=== PATIENT | female | born 1990 | race African-American/Black ===

== ENCOUNTER 2019-05-26 20:27 | Emergency (ER) | payer SELFPAY ==
[~2019-05-26] VITALS: Ht 165.1 cm; Wt 64.0 kg
[2019-05-26] MEDS ORDERED: DEXAMETHASONE 4MG TABLET PO ONE (22:00)
[2019-05-26] MEDS ORDERED: ALBUTEROL (0.083%) 2.5MG/3ML NEB HHN ONE (22:00)
[2019-05-26] MEDS ORDERED: ALBUTEROL (0.5%) 2.5MG/0.5ML NEB HHN ONE (23:15)
[2019-05-27 01:20] VITALS: BP 115/76
== END 2019-05-27 01:22 | disposition home or self-care (01) ==
LOC: ER 20:27
DX: J45.901 Unspecified asthma with (acute) exacerbation (principal)
CPT/HCPCS: 71045; 81025; 94640; 99284; J7611; J8540; Z7610

== ENCOUNTER 2020-11-03 09:08 | Inpatient (IN) | payer MEDICAID ==
[~2020-11-03] VITALS: Ht 165.1 cm; Wt 77.6 kg
[2020-11-03] MEDS ORDERED: PREN-182 PO (10:23)
[2020-11-03] MEDS ORDERED: FERR-71 MT (10:24)
[2020-11-03] MEDS ORDERED: BUTORPHANOL TARTRATE 2 MG/ML VIAL IV PRN ×2 (13:15→20:15)
[2020-11-03] MEDS ORDERED: METHYLERGONOVINE MALEATE 0.2 MG/ML IM PRN (13:15)
[2020-11-03] MEDS ORDERED: CARBOPROST TROMETHAMINE 250 MCG/ML AMPUL IM PRN (13:15)
[2020-11-03] MEDS ORDERED: NALOXONE HCL 0.4 MG/ML 1ML VIAL IM PRN (13:15)
[2020-11-03] MEDS: LACTATED RINGERS 1,000 ML IV SCH ×2 (14:35→15:06)
[2020-11-03 14:41] LABS: BASOPHILS % 0.5 % (0.0-2.0); EOSINOPHILS % 1.3 % (0.0-5.0); HEMATOCRIT. 30.8 % (36.0-48.0); HEMOGLOBIN. 10.3 g/dL (12.0-16.0); LYMPHOCYTES % 22.8 % (20.0-50.0); MEAN CORPUSCULAR HEMOGLOBIN 31.5 pg (28.0-32.0); MEAN CORPUSCULAR VOLUME 93.7 fL (81.0-99.0); MEAN PLATELET VOLUME 8.6 fl (7.4-10.4); NEUTROPHILS % 67.4 % (40.0-76.0); PLATELET 254 x1000/uL (130-400); RED BLOOD CELL COUNT 3.28 mill/uL (4.2-5.4); RED CELL DISTRIBUTION WIDTH 13.1 % (11.6-14.6)
[2020-11-03 14:43] LABS: CLARITY URINE CLOUDY (CLEAR); COLOR URINE YELLOW (YELLOW); KETONES URINE NEGATIVE (NEGATIVE); LEUKOCYTE ESTERASE URINE 3+ (NEGATIVE); NITRITE URINE NEGATIVE (NEGATIVE); OCCULT BLOOD URINE NEGATIVE (NEGATIVE); PH URINE 6.5 (4.5-8.0); PROTEIN URINE NEGATIVE (NEGATIVE); SPECIFIC GRAVITY URINE 1.017 (1.005-1.030); UROBILINOGEN URINE 0.2 E.U./dL (0.2-1.0)
[2020-11-03 14:45] LABS: CHLORIDE 106 mEq/L (98-107)
[2020-11-03] MEDS ORDERED: CEFAZOLIN SODIUM 1000MG/VIAL ONE (14:51)
[2020-11-03] MEDS ORDERED: PHENYLEPHRINE HCL 10 MG/ML 1ML (IV VIAL) IV ONE (14:51)
[2020-11-03] MEDS ORDERED: OXYTOCIN 10 UNITS/ML 1ML ONE (14:51)
[2020-11-03] MEDS ORDERED: ONDANSETRON HCL 4MG/2ML INJ ONE (14:51)
[2020-11-03] MEDS ORDERED: FENTANYL CITRATE/PF 50MCG/ML 2ML VIAL ONE (14:51)
[2020-11-03] MEDS ORDERED: MORPHINE SULFATE/PF 1MG/ML 10ML AMP ONE (14:51)
[2020-11-03] MEDS ORDERED: EPHEDRINE SULFATE 50MG/ML VIAL ONE (14:51)
[2020-11-03] MEDS ORDERED: GLYCOPYRROLATE 0.2 MG/ML 2ML VIAL ONE (14:51)
[2020-11-03 15:03] LABS: *AMPHETAMINES SCREEN URINE NEGATIVE (NEGATIVE); *BARBITURATES SCREEN URINE NEGATIVE (NEGATIVE)
[2020-11-03 15:04] LABS: *BENZODIAZEPINES SCREEN URINE NEGATIVE (NEGATIVE); *COCAINE SCREEN URINE NEGATIVE (NEGATIVE); CANNABINOID URINE SCREEN NEGATIVE (NEGATIVE); METHADONE URINE SCREEN NEGATIVE (NEGATIVE); OPIATES URINE SCREEN NEGATIVE (NEGATIVE); PHENCYCLIDINE URINE SCREEN NEGATIVE (NEGATIVE)
[2020-11-03] MEDS ORDERED: CITRIC ACID/SODIUM CITRATE SOLN 30ML UDC PO NR (15:15)
[2020-11-03 15:16] LABS: HEPATITIS B SURFACE ANTIGEN NEGATIVE
[2020-11-03 15:52] LABS: INR 2.1; PARTIAL THROMBOPLASTIN TIME 35.6 sec (23.4-31.0); PROTHROMBIN TIME 21.5 sec (9.6-11.0)
[2020-11-03 17:50] LABS: PARTIAL THROMBOPLASTIN TIME 32.1 sec (23.4-31.0); PROTHROMBIN TIME 10.4 sec (9.6-11.0)
[2020-11-03] MEDS ORDERED: KETOROLAC 60MG/2ML VIAL IM ONE (19:56)
[2020-11-03] MEDS ORDERED: DIPHENHYDRAMINE 50MG/ML VIAL ONE (19:56)
[2020-11-03] MEDS ORDERED: NALOXONE HCL 0.4 MG/ML 1ML VIAL IV PRN (20:15)
[2020-11-03] MEDS ORDERED: DIPHENHYDRAMINE 50MG/ML VIAL IV PRN (20:15)
[2020-11-03] MEDS: DEXT 5%/LR + PITOCIN 20UNITS/L 1,000 ML IV SCH (20:38)
[2020-11-03] MEDS ORDERED: DEXT 5%/LR + PITOCIN 20UNITS/L 1,000 ML IV SCH (21:45)
[2020-11-03] MEDS ORDERED: IBUPROFEN 400MG TABLET PO PRN (21:45)
[2020-11-03] MEDS ORDERED: ONDANSETRON HCL 4MG/2ML INJ IV PRN (21:45)
[2020-11-03] MEDS ORDERED: RHO(D) IMMUNE GLOBULIN 300 MCG/SYR IM PRN (21:45)
[2020-11-03] MEDS ORDERED: BISACODYL 10MG SUPP PR PRN (21:45)
[2020-11-03] MEDS ORDERED: HEMORRHOIDAL SUPP PR PRN (21:45)
[2020-11-03] MEDS ORDERED: DIPHENHYDRAMINE 25MG CAPSULE PO PRN (21:45)
[2020-11-03] MEDS ORDERED: LANOLIN OINT 7GM TUBE TOP PRN (21:45)
[2020-11-03 21:50] VITALS: BP 117/81
[2020-11-03 22:20] VITALS: BP 121/72
[2020-11-03 22:50] VITALS: BP 107/70
[2020-11-04] MEDS: KETOROLAC 30MG/ML VIAL IV SCH ×2 (01:27→07:16)
[2020-11-04 04:50] VITALS: BP 106/70
[2020-11-04] MEDS: DEXT 5%/LR + PITOCIN 20UNITS/L 1,000 ML IV SCH (04:55)
[2020-11-04 06:59] LABS: BASOPHILS % 0.4 % (0.0-2.0); EOSINOPHILS % 1.1 % (0.0-5.0); HEMATOCRIT. 30.7 % (36.0-48.0); HEMOGLOBIN. 10.3 g/dL (12.0-16.0); LYMPHOCYTES % 18.8 % (20.0-50.0); MEAN CORPUSCULAR HEMOGLOBIN 31.2 pg (28.0-32.0); MEAN CORPUSCULAR VOLUME 92.9 fL (81.0-99.0); MEAN PLATELET VOLUME 8.5 fl (7.4-10.4); MONOCYTES % 6.8 % (2.0-8.0); NEUTROPHILS % 72.9 % (40.0-76.0); PLATELET 255 x1000/uL (130-400); RED CELL DISTRIBUTION WIDTH 13.1 % (11.6-14.6)
[2020-11-04 07:42] VITALS: BP 93/52
[2020-11-04] MEDS: PRENATAL VIT/FE FUMARATE/FA TABLET PO SCH (08:40)
[2020-11-04] MEDS: FERROUS SULFATE 325MG TABLET PO SCH ×3 (08:40→17:44)
[2020-11-04] MEDS: SIMETHICONE 80MG TABLET CHEW PO SCH ×4 (08:40→20:58)
[2020-11-04] MEDS: IBUPROFEN 800MG TABLET PO PRN (12:56)
[2020-11-04 16:14] VITALS: BP 92/51
[2020-11-04 20:00] VITALS: BP 91/52
[2020-11-04] MEDS ORDERED: DOCUSATE SODIUM 100MG CAPSULE PO SCH (21:00)
[2020-11-04] MEDS: HYDROCODONE/ACETAMINOPHEN 5/325MG TABLET PO PRN (21:01)
[2020-11-05] VITALS: BP 100/60
[2020-11-05] MEDS ORDERED: IBUP-2030 PO (01:29)
[2020-11-05 03:36] VITALS: BP 117/69
[2020-11-05] MEDS: HYDROCODONE/ACETAMINOPHEN 5/325MG TABLET PO PRN ×3 (03:40→21:19)
[2020-11-05] MEDS: PRENATAL VIT/FE FUMARATE/FA TABLET PO SCH (08:48)
[2020-11-05] MEDS: IBUPROFEN 800MG TABLET PO PRN ×2 (08:48→16:13)
[2020-11-05] MEDS: FERROUS SULFATE 325MG TABLET PO SCH ×3 (08:48→17:30)
[2020-11-05] MEDS: SIMETHICONE 80MG TABLET CHEW PO SCH ×4 (08:48→21:19)
[2020-11-05 09:01] VITALS: BP 101/54
[2020-11-05 12:00] VITALS: BP 107/59
[2020-11-05 16:00] VITALS: BP 91/50
[2020-11-05 20:00] VITALS: BP 98/50
[2020-11-06 03:40] VITALS: BP 110/77
[2020-11-06] MEDS: HYDROCODONE/ACETAMINOPHEN 5/325MG TABLET PO PRN (03:48)
[2020-11-06 08:13] VITALS: BP 110/77
[2020-11-06] MEDS: IBUPROFEN 800MG TABLET PO PRN (08:13)
== END 2020-11-06 11:20 | disposition home or self-care (01) | DRG 540 ==
LOC: 8 EST LDRP 09:08 → OBSVTOIN 09:08 → 8 EST LDRP 09:34 → 8EST 21:53
PROVIDERS: ADMIT Obstetrics & Gynecology; ATTEND Obstetrics & Gynecology
PROC: 10D00Z1 Extraction of Products of Conception, Low, Open Approach (ICD-10-PCS; principal; 2020-11-03)
DX: O34.211 Maternal care for low transverse scar from previous cesarean delivery (principal); O99.824 Streptococcus B carrier state complicating childbirth; O90.81 Anemia of the puerperium; Z20.822 Contact with and (suspected) exposure to COVID-19; D64.9 Anemia, unspecified; Z37.0 Single live birth; Z3A.38 38 weeks gestation of pregnancy
CPT/HCPCS: 36415; 76805; 76818; 80053; 80305; 81003; 85025; 86592; 86703; 86762; 86850; 86900; 87340; 87426; 88307; 99281; J0595; J0690; J1200; J1885; J2274; J2370; J2405; J2590; J3010; J3490; J7120; A4315

== ENCOUNTER 2020-11-09 11:55 | Emergency (ER) | payer MEDICAID ==
[~2020-11-09] VITALS: Ht 165.1 cm; Wt 64.0 kg
[~2020-11-09 11:55] MED LIST: FERR-71 MT; IBUP-2030 PO; PREN-182 PO
[2020-11-09 13:00] VITALS: BP 145/80
== END 2020-11-09 13:03 | disposition home or self-care (01) ==
LOC: ER 12:04
DX: Z48.89 Encounter for other specified surgical aftercare (principal); R03.0 Elevated blood-pressure reading, without diagnosis of hypertension
CPT/HCPCS: 93005; 99283

== ENCOUNTER 2022-07-25 05:17 | Emergency (ER) | payer MEDICAID, OTHER ==
[~2022-07-25] VITALS: Ht 175.3 cm; Wt 73.0 kg
[2022-07-25 05:18] VITALS: BP 124/84
[2022-07-25] MEDS ORDERED: ALBU6.7H3 INH (06:26)
[2022-07-25] MEDS ORDERED: P50 MT (06:26)
== END 2022-07-25 06:36 | disposition home or self-care (01) ==
LOC: ER 05:24
DX: R06.00 Dyspnea, unspecified (principal)
CPT/HCPCS: 71045; 93005; 99283

== ENCOUNTER 2023-03-15 18:00 | Emergency (ER) | payer OTHER ==
[~2023-03-15] VITALS: Ht 165.1 cm; Wt 70.0 kg
[~2023-03-15 18:00] MED LIST changes: +ALBU6.7H3 INH; +P50 MT
[2023-03-15 18:07] VITALS: TEMP 98.5; O2SAT 100
[2023-03-15 18:45] LABS: BASOPHILS % 0.7 % (0.0-2.0); HEMATOCRIT. 32.5 % (36.0-48.0); HEMOGLOBIN. 10.8 g/dL (12.0-16.0); LYMPHOCYTES % 32.1 % (20.0-50.0); MEAN CORPUSCULAR HEMOGLOBIN 30.6 pg (28.0-32.0); MEAN PLATELET VOLUME 7.6 fl (7.4-10.4); MONOCYTES % 6.7 % (2.0-8.0); NEUTROPHILS % 56.5 % (40.0-76.0); PLATELET 300 x1000/uL (130-400); RED BLOOD CELL COUNT 3.53 mill/uL (4.2-5.4); RED CELL DISTRIBUTION WIDTH 15.2 % (11.6-14.6)
[2023-03-15 18:53] LABS: CHLORIDE 105 mEq/L (98-107)
[2023-03-15 20:27] LABS: CLARITY URINE CLOUDY (CLEAR); COLOR URINE YELLOW (YELLOW); KETONES URINE NEGATIVE (NEGATIVE); LEUKOCYTE ESTERASE URINE NEGATIVE (NEGATIVE); NITRITE URINE NEGATIVE (NEGATIVE); OCCULT BLOOD URINE NEGATIVE (NEGATIVE); PROTEIN URINE TRACE (NEGATIVE); SPECIFIC GRAVITY URINE 1.033 (1.005-1.030)
[2023-03-15] MEDS ORDERED: ACETAMINOPHEN 325MG TABLET PO STA (20:33)
[2023-03-15] MEDS ORDERED: ONDANSETRON HCL 4MG/2ML INJ IM STA (20:33)
[2023-03-15] MEDS ORDERED: ACET-2708 PO (22:06)
[2023-03-15] MEDS ORDERED: ONDA4TAB50 PO (22:06)
[2023-03-15] MEDS ORDERED: CEPH500C2 MT (22:06)
[2023-03-15 22:44] VITALS: BP 128/75; PULSE 65; RESP 16
== END 2023-03-15 22:48 | disposition home or self-care (01) ==
LOC: ER 18:00
DX: O26.891 Other specified pregnancy related conditions, first trimester (principal); Z3A.18 18 weeks gestation of pregnancy
CPT/HCPCS: 80053; 81003; 81025; 84702; 85025; 36415; 76801; 76817; 96372; 99285; J2405; Z7610 ×2

== ENCOUNTER 2025-01-08 02:53 | Emergency (ER) | payer OTHER ==
[~2025-01-08] VITALS: Ht 170.2 cm; Wt 82.0 kg
[~2025-01-08 02:53] MED LIST changes: +ACET-2708 PO; +CEPH500C2 MT; +ONDA4TAB50 PO
[2025-01-08] MEDS: ACETAMINOPHEN 325MG TABLET PO ONE (03:00)
[2025-01-08 03:04] VITALS: BP 189/116; PULSE 105; RESP 16; TEMP 37.1; O2SAT 99
[2025-01-08] MEDS: ACETAMINOPHEN 325MG TABLET PO NR (04:50)
[2025-01-09] MEDS ORDERED: FLUT1DIS3 INH (12:15)
[2025-01-09] MEDS ORDERED: ALBU18HF2 IH (12:15)
[2025-01-09] MEDS ORDERED: P20 MT (12:15)
== END 2025-01-08 06:36 ==
LOC: ER 02:53
DX: S00.03XA Contusion of scalp, initial encounter (principal); S09.90XA Unspecified injury of head, initial encounter; J45.909 Unspecified asthma, uncomplicated; R03.0 Elevated blood-pressure reading, without diagnosis of hypertension; Z79.899 Other long term (current) drug therapy; Z98.890 Other specified postprocedural states; W51.XXXA Accidental striking against or bumped into by another person, initial encounter; Y93.89 Activity, other specified; Y92.89 Other specified places as the place of occurrence of the external cause; Y99.8 Other external cause status
CPT/HCPCS: 73110; 73610; 99284